=== PATIENT | female | born 1995 | race Caucasian/White ===

== ENCOUNTER 2023-12-11 00:32 | Inpatient (IN) | payer MEDICAID ==
[2023-12-11] VITALS (49 sets, daily range): BP systolic 91–132; BP diastolic 55–91; PULSE 70–98; TEMP 98–99; O2SAT 91–99
[~2023-12-11] VITALS: Ht 175.3 cm; Wt 109.9 kg
[~2023-12-11 00:32] MED LIST: LATUDA40 MG PO; PRENATAL; PROMETHAZINE12.5 M5; PROTONIX20 MG PO; QUALITY CHOICE1 TA7; ZOFRAN ODT4 MG PO; ZOLOFT 50MG50 MG PO
[2023-12-11] MEDS ORDERED: Ondansetron 4 MG/2 ML VIAL IV ONE (00:45)
[2023-12-11] MEDS ORDERED: LR 1,000 ML IV ONE ×2 (00:45→01:45)
[2023-12-11 01:14] LABS: BASO # 0.1 K/mm3 (0.0-0.2); BASO % 0.5 % (0.0-2.0); EOS # 0.1 K/mm3 (0.0-0.7); EOS % 0.8 % (0.0-4.0); GRAN # 9.1 K/mm3 (1.4-6.5); GRAN % 82.5 % (42.2-75.2); HEMATOCRIT 42.9 % (37.0-47.0); HEMOGLOBIN 13.9 g/dl (12.5-16.0); LYMPH # 1.3 K/mm3 (1.2-3.4); LYMPH % 12.1 % (20.0-51.0); MEAN CELL VOLUME 87 fl (80.0-100.0); MEAN CORPUSCULAR HEMOGLOBIN 28 pg (27-31); MEAN CORPUSCULAR HGB CONC 32 g/dl (33.0-37.0); MEAN PLATELET VOLUME 9.4 fl (7.4-10.4); MONO # 0.4 K/mm3 (0.1-0.6); MONO % 3.8 % (1.7-9.3); PLATELET COUNT 351 K/mm3 (130-400); RED BLOOD COUNT 4.93 M/mm3 (4.10-5.30); REDCELL DISTRIBUTION WIDTH-CV 14.4 % (11.5-14.5)
[2023-12-11 01:28] LABS: COLLECTION METHOD CLEAN CATCH
[2023-12-11 01:43] LABS: PH 5.5 (5.0-8.5); URINE APPEARANCE CLOUDY (CLEAR/HAZY); URINE BLOOD NEGATIVE (NEGATIVE); URINE COLOR Dark Yellow (YELLOW); URINE GLUCOSE NEGATIVE (NEGATIVE); URINE KETONE TRACE (NEGATIVE); URINE NITRATE POSITIVE (NEGATIVE); URINE PROTEIN(semi-quant) 2+ (NEGATIVE)
[2023-12-11 01:50] LABS: TRICYCLIC ANTIDEPRESS URINE NEGATIVE (NEGATIVE)
[2023-12-11 01:52] LABS: MUCOUS PRESENT (NOT PRESENT); URINE BACTERIA MANY /hpf (NONE SEEN); URINE RBC NONE SEEN /hpf (0-2)
[2023-12-11 01:56] LABS: ALANINE AMINOTRANSFERASE 26 U/L (0-55); ALBUMIN 4.2 g/dL (3.5-5.0); ALKALINE PHOSPHATASE 102 U/L (40-150); ANION GAP 12 mmol/L (7-16); AST,SGOT 26 U/L (5-34); BILIRUBIN,TOTAL 0.4 mg/dL (0.2-1.2); BLOOD UREA NITROGEN 8 mg/dL (7-19); CHLORIDE 109 mEq/L (98-107); CREATINE KINASE 65 U/L (29-168); CREATININE, serum 0.82 mg/dL (0.57-1.11); GLUCOSE 100 mg/dL (70-99); POTASSIUM 3.8 mEq/L (3.5-4.5); SALICYLATE < 5.0 mg/dL (15.0-30.0); SODIUM 140 mEq/L (136-145); TOTAL PROTEIN 8.5 g/dl (6.2-8.1)
[2023-12-11] MEDS ORDERED: LR 1,000 ML IV SCH (02:30)
[2023-12-11] MEDS ORDERED: *Potassium Replacement Protocol MC SCH (09:00)
[2023-12-11] MEDS ORDERED: NS 1,000 ML IV SCH ×2 (09:00→15:00)
--- NOTE | 2023-12-11 09:16 | NUR ---
Pt arrvied to room 8 via ED stretcher at 0800. Pt ambualted from stretcher to bathroom and then to bed. Pt has some nausea and some aching. Pt is drowsy but oreitned x4. Pt states she does still have suicidal thoughts. Does have a plan and back up plan. Pt updated about POC. Call light zip tied to bed and all unnecessary items removed from room for safety. Seizure precautions in place. LR infusing per orders. Vital signs are stable. Pt placed in paper scrubs. Pt denies any needs at this time. Call light within reach. Will continue wtih POC.
--- NOTE | 2023-12-11 10:13 | NUR ---
SW met with patient to complete initial assessment for discharge planning. Patient verified that she lives in [place] with her 3 year old and 1 year old children. Patient lists her mother Jono ([phone]) as her emergency contact and her friend Nico Snell ([phone]) as second contact. Patient does not have a DPOA completed. Patient sees Ivana Bone APRN at [facility] as her PCP and uses [facility] without difficulty. Patient also sees a psychiatrist at [facility]. Patient confirms this is her third suicide attempt by taking medications. SW called patient's mother to discuss discharge planning. She confirms patient's information and states that her mother has patient's children. She states that either she or her mother will keep the kids while patient is hosptialized. Jono reports that children's father is involved with kids for visitation with patient having full custody of them. Mother is unclear if DCF is involved with patient and children. Mother reports that patient recently started a new job at [employer] in [place] working long shifts at night. She reports that patient voices being overwhelmed and exhausted. SW followed up with patient who reports DCF is not involved with her or children. SW explained that [facility] will be contacted once she is medically cleared for psych placement. Patient voiced understanding. Discharge plan: inpt psych placement
[2023-12-11] MEDS ORDERED: GLUCOPHAGE500 MG/TAB PO (10:21)
[2023-12-11] MEDS ORDERED: ZOLOFT 100MG100 MG PO (10:22)
[2023-12-11] MEDS ORDERED: ATARAX 25MG25 MG/TAB PO (10:22)
[2023-12-11] MEDS ORDERED: LITHIUM CA150 MG/CAP PO (10:23)
[2023-12-11] MEDS ORDERED: ESKALITH C450 MG/TAB PO (10:23)
[2023-12-11] MEDS ORDERED: Acetaminophen 325 MG TAB PO PRN (11:30)
[2023-12-11] MEDS ORDERED: Ondansetron 4 MG/2 ML VIAL IV PRN (11:30)
--- NOTE | 2023-12-11 11:38 | NUR ---
Pt states she is having some blurred vision. Blurred vision started last night while in the ER. Pt is unable to read things that are close up, she is able to tell colors and can still read somethings that are far away. Denies any pain in eyes. Pt also having some nausea. Notified Dr. Elder and received PRN zofran orders. Pt vomited approximatly 200mls of brown liquid. Denies any other needs at this time. Still admits to having suicidal thoughts. Will continue with POC.
--- NOTE | 2023-12-11 11:57 | NUR ---
Data: Spiritual care visit attempted during [employer] rounds. RN advised [employer] that later would be better as Patient has had bouts of vomiting. Assessment: None at this time. Plan of Care: [employer] will follow-up no later than 12/12/2023. Chaplains will remain available as needed/requested while Patient is admitted to this hospital.
--- NOTE | 2023-12-11 15:00 | NUR ---
Called [facility] about elvated lithium levels. Per their recommendations get lithium levels Q2HR and a new CMP now. It was also recommended to get a nephrology consult. Notified Dr. Elder who stated to go ahead with those orders. She stated she would notify nephrology.
[2023-12-11 15:47] LABS: BILIRUBIN,TOTAL 0.4 mg/dL (0.2-1.2); CALCIUM 9.5 mg/dL (8.4-10.2); CREATININE, serum 0.8 mg/dL (0.57-1.11); POTASSIUM 3.2 mEq/L (3.5-4.5); TOTAL PROTEIN 6.8 g/dl (6.2-8.1)
[2023-12-11 16:45] LABS: ALBUMIN 3.4 g/dL (3.5-5.0)
[2023-12-11] MEDS ORDERED: Potassium Bicarbonate/Citrate 20 MEQ Effervescent TAB PO SCH (17:00)
[2023-12-12] VITALS (33 sets, daily range): BP systolic 89–115; BP diastolic 46–65; PULSE 71–103; TEMP 98.6–99.3; O2SAT 92–100
[2023-12-12 05:30] LABS: BASO % 0.3 % (0.0-2.0); EOS # 0.2 K/mm3 (0.0-0.7); GRAN # 5.3 K/mm3 (1.4-6.5); GRAN % 71.3 % (42.2-75.2); LYMPH # 1.5 K/mm3 (1.2-3.4); LYMPH % 20.5 % (20.0-51.0); MEAN CELL VOLUME 87 fl (80.0-100.0); MEAN CORPUSCULAR HGB CONC 33 g/dl (33.0-37.0); MEAN PLATELET VOLUME 8.6 fl (7.4-10.4); MONO # 0.4 K/mm3 (0.1-0.6); MONO % 5.6 % (1.7-9.3); PLATELET COUNT 264 K/mm3 (130-400); REDCELL DISTRIBUTION WIDTH-CV 14.3 % (11.5-14.5)
[2023-12-12 05:31] LABS: HEMATOCRIT 36.6 % (37.0-47.0); HEMOGLOBIN 11.9 g/dl (12.5-16.0); MEAN CORPUSCULAR HEMOGLOBIN 28 pg (27-31)
[2023-12-12 05:53] LABS: ALBUMIN 3.1 g/dL (3.5-5.0); CALCIUM 8.4 mg/dL (8.4-10.2); CREATININE, serum 0.84 mg/dL (0.57-1.11); MAGNESIUM 1.8 mg/dL (1.6-2.6); PHOSPHOROUS 1.7 mg/dL (2.3-4.7); POTASSIUM 3.1 mEq/L (3.5-4.5)
--- NOTE | 2023-12-12 06:51 | NUR ---
UNEVENTFUL NIGHT, PT RESTED WELL. LITHIUM LEVEL DID INCREASE SLIGHTLY ON LAST DRAW, CHANGES MADE TO IVF RATE AND WILL FOLLOW WITH NEXT LAB AT 0830.
[2023-12-12] MEDS ORDERED: Potassium Bicarbonate/Citrate 20 MEQ Effervescent TAB PO SCH (07:00)
--- NOTE | 2023-12-12 07:18 | NUR ---
Report received from MARILEE Delgado. Reviewed overnight events and labs. Pt remains on suicide precautions in place. IVF infusing per orders. Seizure precautions in place. Pt is sleeping. Call light within reach. Will cotinue with POC.
--- NOTE | 2023-12-12 11:35 | NUR ---
Data: Spiritual care visit attempted during Signing Agent rounds. RN advised Signing Agent that Patient is on suicide precautions. Patient is sleeping. None: Patient is sleeping. Plan of Care: Chaplains will remain available as needed/requested while Patient is admitted to this hospital.
[2023-12-12] MEDS ORDERED: hydrOXYzine HCl 25 MG TAB PO PRN (14:00)
--- NOTE | 2023-12-12 15:12 | NUR ---
GLENROY received call from Dr. Holloway stating that psych consult is recommending inpt psych placement. GLENROY called [facility] to make referral. They requested clincials and demographic information. GLENROY will notify [facility] when patient is medically cleared. Discharge plan: Inpt psych
[2023-12-12] MEDS ORDERED: Potassium Chloride 100 ML IV SCH (15:45)
--- NOTE | 2023-12-12 17:10 | NUR ---
Pt changed to high risk suicide precuations which is a 1:1. This RN is remaining at bedside. Pt admits to haveing suicidal thoughts and now has intent to act on those thoughts. Pt has been calm and pleasant thoughout the shift and very compliant with care during the shift. Pt contines to c/o blurry vison and dizziness. Seizure precuations in place. Vital signs have been stable. Will continue with POC.
--- NOTE | 2023-12-12 19:27 | NUR ---
PATIENT CURRENTLY LAYING IN BED, ALERT AND CALM. PICC TO RIGHT UPPER ARM WITH NS RUNNING. CALL LIGHT WITHIN REACH. CALLS APROPRIATELY. GETS UP WITH ASSITANCE. NO ACUTE EVENTS.
[2023-12-12] MEDS ORDERED: Sertraline 100 MG TAB PO SCH (21:00)
[2023-12-13] VITALS (9 sets, daily range): BP systolic 93–123; BP diastolic 57–77; PULSE 73–87; TEMP 98.5–99.1
[2023-12-13 05:36] LABS: BASO % 0.4 % (0.0-2.0); EOS # 0.2 K/mm3 (0.0-0.7); EOS % 2.6 % (0.0-4.0); GRAN # 5.8 K/mm3 (1.4-6.5); GRAN % 68.8 % (42.2-75.2); HEMOGLOBIN 10.7 g/dl (12.5-16.0); LYMPH # 1.8 K/mm3 (1.2-3.4); LYMPH % 21.2 % (20.0-51.0); MEAN CELL VOLUME 89 fl (80.0-100.0); MEAN CORPUSCULAR HEMOGLOBIN 29 pg (27-31); MEAN CORPUSCULAR HGB CONC 33 g/dl (33.0-37.0); MEAN PLATELET VOLUME 8.8 fl (7.4-10.4); MONO # 0.6 K/mm3 (0.1-0.6); MONO % 6.9 % (1.7-9.3); PLATELET COUNT 237 K/mm3 (130-400); RED BLOOD COUNT 3.67 M/mm3 (4.10-5.30); REDCELL DISTRIBUTION WIDTH-CV 14.1 % (11.5-14.5)
[2023-12-13 05:38] LABS: ALBUMIN 3.1 g/dL (3.5-5.0); ANION GAP 8 mmol/L (7-16); CALCIUM 8.2 mg/dL (8.4-10.2); CHLORIDE 105 mEq/L (98-107); CREATININE, serum 0.68 mg/dL (0.57-1.11); GLUCOSE 96 mg/dL (70-99); MAGNESIUM 1.4 mg/dL (1.6-2.6); PHOSPHOROUS 1.6 mg/dL (2.3-4.7); SODIUM 136 mEq/L (136-145)
[2023-12-13 05:40] LABS: BLOOD UREA NITROGEN < 5 mg/dL (7-19)
[2023-12-13 05:41] LABS: HEMATOCRIT 32.5 % (37.0-47.0)
[2023-12-13] MEDS ORDERED: *Potassium Replacement Protocol MC SCH (06:30)
[2023-12-13] MEDS ORDERED: Potassium Chloride 100 ML IV SCH ×2 (06:30→16:45)
--- NOTE | 2023-12-13 07:37 | NUR ---
Patient is currently laying in bed with eyes closed, seems to be sleeping. VSS, IV fluids infusing through PICC line, no complications noted. Voiding appropriately. Per report given from PM nurse, she did refuse her Zoloft last night. Stated that "after she overdoses, taking pills makes her throw up." [place] level is 1.6 reported at 0720. Will report significant changes.
--- NOTE | 2023-12-13 10:03 | NUR ---
Patient has been resting with eyes closed this morning. Has been able to get to and from the toilet without distress, steady on her feet. Patient ate approximately 50% of her breakfast. Financial counseling is following patient situation. At this time, VSS. denies SI, feels tired/drained emotionally, physically, and mentally. Will continue to monitor 1:1.
[2023-12-13] MEDS ORDERED: Magnesium Sulfate 4 GM/50 ML IV SOLN IV ONE (10:30)
--- NOTE | 2023-12-13 10:37 | NUR ---
GLENROY attended clinical rounds with medical team. Patient is currently on 1:1 monitoring for SI, pending medical clearance for [place] screen for inpt psych placement. Dr. Holloway to monitor labs through today with probable medical clearance tomorrow. GLENROY called [facility] and spoke with Gwendolyn who stated that when patient is fully medically cleared to call and they will screen and pursue inpt placement for patient. Patient voiced agreement for inpt placement to Dr. Holloway during rounds. Discharge plan: Inpt psych
--- NOTE | 2023-12-13 11:13 | NUR ---
Hospitalist recommended moderate suicide watch, 15 minute checks. Possibility for medical clearance 12/14/23, to be screened by [facility]. [place] level is 1.2, next serial lab has been drawn and am waiting for results.
--- NOTE | 2023-12-13 11:54 | NUR ---
Spoke with Poison control at 1120, no further action needed for posion control to follow up on. [place] levels are trending and maintaining close to normal range. Consult again if issues arise. Poison control signing off, Dr. Holloway notified.
--- NOTE | 2023-12-13 16:47 | NUR ---
Received patients phone from security before noon. It is bedside with patient. No shore man is in the room.
--- NOTE | 2023-12-13 20:30 | NUR ---
PT SITTING UP AT SIDE OF BED, FINISHED EATING SANDWICH. STATES NO COMPLAINTS OR NEEDS. BROUGHT ZOLOFT IN PER ORDER, PT STATES CANNOT TAKE THE PILLS SHE WILL THROW THEM UP. ANDREAAN ON ORDER PRN AND OFFERED TO PT AT THIS TIME PRIOR TO PILLS, STATES WILL NOT HELP AND DOES NOT WANT TO TAKE PILL TONIGHT. RETURNED TO [facility] AT THIS TIME.
[2023-12-14] VITALS: BP 116/72; PULSE 78; TEMP 97.8
[2023-12-14 04:00] VITALS: BP 109/71; PULSE 88; TEMP 97.9
--- NOTE | 2023-12-14 04:38 | NUR ---
PT HAS HAD UNEVENTFUL NIGHT. HAS BEEN AWAKE LAST FEW HOURS, IN [employer] AND REPORTS NO NEEDS OR CONCERNS.
[2023-12-14 04:55] LABS: BASO # 0.1 K/mm3 (0.0-0.2); BASO % 0.6 % (0.0-2.0); EOS # 0.2 K/mm3 (0.0-0.7); EOS % 2.2 % (0.0-4.0); GRAN % 66.6 % (42.2-75.2); LYMPH # 2.2 K/mm3 (1.2-3.4); LYMPH % 23.7 % (20.0-51.0); MEAN CELL VOLUME 87 fl (80.0-100.0); MEAN CORPUSCULAR HEMOGLOBIN 29 pg (27-31); MEAN CORPUSCULAR HGB CONC 33 g/dl (33.0-37.0); MEAN PLATELET VOLUME 8.5 fl (7.4-10.4); MONO # 0.6 K/mm3 (0.1-0.6); MONO % 6.6 % (1.7-9.3); PLATELET COUNT 263 K/mm3 (130-400); RED BLOOD COUNT 4.21 M/mm3 (4.10-5.30); REDCELL DISTRIBUTION WIDTH-CV 13.8 % (11.5-14.5)
[2023-12-14 04:56] LABS: HEMATOCRIT 36.7 % (37.0-47.0)
[2023-12-14 05:13] LABS: ALBUMIN 3.5 g/dL (3.5-5.0); ANION GAP 10 mmol/L (7-16); CHLORIDE 105 mEq/L (98-107); CREATININE, serum 0.67 mg/dL (0.57-1.11); GLUCOSE 95 mg/dL (70-99); MAGNESIUM 1.9 mg/dL (1.6-2.6); PHOSPHOROUS 2.4 mg/dL (2.3-4.7); POTASSIUM 3.8 mEq/L (3.5-4.5); SODIUM 137 mEq/L (136-145)
[2023-12-14 05:17] LABS: BLOOD UREA NITROGEN < 5 mg/dL (7-19)
--- NOTE | 2023-12-14 07:15 | NUR ---
REPORT RECEIVED FROM MARILEE OWENS. PT REMAINS A MODERATE SUICIDE RISK WITH PRECAUTIONS IN PLACE. PT APPEARS TO BE SLEEPING COMFORTABLY AT THIS TIME; NO S/S DISCOMFORT.
[2023-12-14 08:00] VITALS: BP 110/71; PULSE 75; PULSE 80; TEMP 98.1
[2023-12-14] MEDS ORDERED: Potassium Bicarbonate/Citrate 20 MEQ Effervescent TAB PO ONE (08:00)
[2023-12-14] MEDS ORDERED: Cefuroxime 250 MG TAB PO SCH (10:30)
--- NOTE | 2023-12-14 11:38 | NUR ---
PT ON ZOOM CALL WITH THERAPIST FROM [facility] BEING SCREENED FOR PLACEMENT AT THIS TIME.
--- NOTE | 2023-12-14 11:46 | NUR ---
THIS RN RECEIVED FROM CALL FROM JOJO HOLLIS AT [facility]. RECOMMENDING INPATIENT TREATMENT. KHAI STATES SHE WILL BE FAXING 2 DOCUMENTS TO ICU FOR PT TO SIGN AND THEN FAX BACK. KHAI ALSO NEEDS DOCUMENTATION STATING THAT PT HAS UTI AND WILL REQUIRE ORAL ANTIBIOTICS. DR. GIRARD NOTIFIED OF NEED FOR DOCUMENTATION.
[2023-12-14 12:00] VITALS: BP 114/79; PULSE 81; TEMP 98.3
--- NOTE | 2023-12-14 12:43 | NUR ---
asphalt worker attended interdisciplinary clinical rounding with Dr. Holloway. Patient is medically ready for discharge. GLENROY faxed updated information to [facility] for inpatient psych screening. GLENROY contacted [facility] and explained the team at the hospital is requesting inpatient psych placement. Noelle the therapist explained based on the information provided in the referral patient may qualify but she will need to complete her screening with the patient before giving her final recommendation. Noelle stated she would be able to meet with patient this afternoon after 11 am. GLENROY notified patient's nurse of conversation.
[2023-12-14] MEDS ORDERED: CEFTIN500 MG PO (14:39)
--- NOTE | 2023-12-14 15:11 | NUR ---
PT HAS BEEN ACCEPTED BY [facility]. DOC TO DOC DONE BY DR. GIRARD. ASHER SHELTON MADE AWARE AND WILL SET UP TRANSPORT.
[2023-12-14 16:00] VITALS: BP 117/75; PULSE 95; TEMP 98.5
--- NOTE | 2023-12-14 16:30 | NUR ---
PT'S MOM AT THE BEDSIDE. NOTARY AT THE BEDSIDE AND ASSISTING WITH NOTARIZING GUARDIANSHIP PAPERWORK. PT'S MOM WILL BE TAKING TEMPORARY GUARDIANSHIP OF PT'S 2 CHILDREN.
--- NOTE | 2023-12-14 18:13 | NUR ---
THIS RN GAVE REPORT TO WANDA AT [facility]. WANDA REQUESTING THAT PT SIGN CONSENTS FOR ADMISSION TO [facility] AND THAT LABS ALSO BE FAXED TO HER. CONSENTS SIGNED BY PATIENT AND FAXED BACK TO WANDA ALONG WITH LABS.
--- NOTE | 2023-12-14 18:56 | NUR ---
PT LEFT FACILITY AT THIS TIME WITH [facility]. [facility] HAS POSSESSION OF PT'S PHONE AND ASSISTANT FINANCE DIRECTOR. PT CHANGED INTO HER PERSONAL CLOTHING PRIOR TO TRANSPORT. PT CALLED HER MOTHER PRIOR TO TRANSPORT AND MADE HER AWARE OF TRANSFER. THIS RN CALLED WANDA AT [facility] AND LET HER KNOW THAT PT WAS ON HER WAY AT THIS TIME.
== END 2023-12-14 18:56 | DRG 918 ==
LOC: COL.ER 00:32 → EDBD 00:34 → ICU 06:21
PROVIDERS: Emergency Medicine; Hospitalist; Internal Medicine; ADMIT Internal Medicine
PROC: 02HV33Z Insertion of Infusion Device into Superior Vena Cava, Percutaneous Approach (ICD-10-PCS; principal; 2023-12-12)
DX: T56.892A Toxic effect of other metals, intentional self-harm, initial encounter (principal); N39.0 Urinary tract infection, site not specified; F31.81 Bipolar II disorder; E83.39 Other disorders of phosphorus metabolism; E83.42 Hypomagnesemia; E87.6 Hypokalemia; Z20.822 Contact with and (suspected) exposure to COVID-19; F41.9 Anxiety disorder, unspecified; B96.20 Unspecified Escherichia coli [E. coli] as the cause of diseases classified elsewhere; Z91.51 Personal history of suicidal behavior; Z88.8 Allergy status to other drugs, medicaments and biological substances; Z79.84 Long term (current) use of oral hypoglycemic drugs; Z79.899 Other long term (current) drug therapy
CPT/HCPCS: C1751; J2405; J3475; J3480; J7030; J7120; Q3014

== ENCOUNTER 2024-03-09 18:41 | Emergency (ER) | payer MEDICAID ==
[~2024-03-09] VITALS: Ht 175.3 cm; Wt 110.9 kg
[~2024-03-09 18:41] MED LIST changes: +ATARAX 25MG25 MG/TAB PO; +CEFTIN500 MG PO; +ESKALITH C450 MG/TAB PO; +GLUCOPHAGE500 MG/TAB PO; +LITHIUM CA150 MG/CAP PO; +ZOLOFT 100MG100 MG PO
[2024-03-09 18:44] VITALS: TEMP 98.1
[2024-03-09] MEDS ORDERED: CLEOCIN HCL300 MG PO (19:10)
[2024-03-09 19:23] VITALS: BP 123/68; PULSE 88
== END 2024-03-09 19:25 | disposition home or self-care (01) ==
LOC: COL.ER 18:41
DX: L29.9 Pruritus, unspecified (principal); L53.9 Erythematous condition, unspecified; T36.0X5A Adverse effect of penicillins, initial encounter